=== PATIENT | female | born 1995 | race Caucasian/White ===

== ENCOUNTER 2022-07-25 09:58 | Emergency (ER) | payer OTHER ==
[~2022-07-25] VITALS: Ht 177.8 cm; Wt 146.1 kg
[2022-07-25 10:02] VITALS: BP 142/102
--- NOTE | 2022-07-25 11:47 | NUR ---
26 y/o female bib self from home, c/o chest congestion, runny nose, chest feels "heavy" with sob for 2 days. pt denies anyone else sick at home at this time. denies nausea, vomiting, diarrhea. skin is pink/warm/dry. a&o x4 with even and steady gait. lungs clear bl, heart rate even and regular. pt states pain is 7/10 at this time. vss. ermd made aware of pt. pmh: denies nka med: denies
[2022-07-25 12:51] VITALS: BP 136/72
--- NOTE | 2022-07-25 12:51 | NUR ---
Patient discharged with v/s stable. Written and verbal after care instructions ABOUT UPPER RESPIRATORY INFECTION given and explained. Patient verbalized understanding. Ambulatory with steady gait. All questions addressed prior to discharge. Advised to follow up with PMD.
== END 2022-07-25 12:51 | disposition home or self-care (01) ==
LOC: MED 09:58
DX: J06.9 Acute upper respiratory infection, unspecified (principal)
CPT/HCPCS: 71045; 93005; 99283

== ENCOUNTER 2023-07-20 16:07 | Emergency (ER) | payer MEDICAID, OTHER ==
[~2023-07-20] VITALS: Ht 175.3 cm; Wt 142.9 kg
[2023-07-20 16:31] VITALS: BP 152/84; PULSE 60; RESP 18; TEMP 98.2; O2SAT 98
[2023-07-20 17:16] LABS: BASOPHILS % (AUTO) 0.7 % (0.0-2.0); EOSINOPHILS # (AUTO) 0.1 K/uL (0-0.4); EOSINOPHILS % (AUTO) 1.9 % (0.0-4.0); HEMATOCRIT 35.3 % (36-48); HEMOGLOBIN 11.3 g/dL (12.0-16.0); LYMPHOCYTES # (AUTO) 2.1 K/uL (2.5-16.5); MEAN CORPUSCULAR HEMOGLOBIN 27 pg (27-31); MEAN CORPUSCULAR HGB CONC 32 g/dL (33-37); MEAN CORPUSCULAR VOLUME 83.5 fL (80-94); MONOCYTES # (AUTO) 0.3 K/uL (0.8-1.0); MONOCYTES % (AUTO) 4.9 % (1.7-9.3); NEUTROPHILS # (AUTO) 4.1 K/uL (1.8-7.7); NEUTROPHILS % (AUTO) 61.5 % (42.2-75.2); PLATELET COUNT (AUTO) 266 K/uL (140-450); RED BLOOD CELL COUNT(AUTO) 4.23 MIL/uL (4.20-5.40); RED CELL DISTRIBUTION WIDTH 13.4 % (11.6-13.7); WHITE BLOOD COUNT (AUTO) 6.6 K/uL (4.8-10.8)
[2023-07-20 17:33] LABS: ALBUMIN 3.4 g/dL (3.4-5.0); ANION GAP 13.4 (8-16); CALCIUM 8.3 mg/dL (8.5-10.1); CARBON DIOXIDE 26.4 mmol/L (21-32); CREATININE 0.7 mg/dL (0.6-1.3); POTASSIUM 3.8 mmol/L (3.5-5.1); TOTAL BILIRUBIN 3.2 mg/dL (0.0-1.0); TOTAL PROTEIN, SERUM 7.5 g/dL (6.4-8.2)
[2023-07-20] MEDS ORDERED: KETOROLAC 30 MG/ML VIAL IM ONE (17:40)
[2023-07-20] MEDS ORDERED: DICYCLOMINE HCL LIQUID 10 MG/5 ML UDC PO ONE (17:40)
[2023-07-20] MEDS ORDERED: ALUMINUM HYD/MAG/SIMETHICONE 30 ML UDC PO ONE (17:40)
[2023-07-20] MEDS ORDERED: FAMOTIDINE 20 MG TAB PO ONE (17:40)
[2023-07-20 17:52] LABS: APPEARANCE,URINE CLEAR (CLEAR); BILIRUBIN,URINE 3+ (NEGATIVE); BLOOD, URINE NEGATIVE (NEGATIVE); COLOR,URINE ORANGE (YELLOW); LEUKOCYTE ESTERASE ,URINE 1+ (NEGATIVE); NITRITE, URINE NEGATIVE (NEGATIVE); PROTEIN,URINE NEGATIVE (NEGATIVE); UGLUCOSE TRACE (NEGATIVE); UROBILINOGEN,URINE 0.2 EU/dL (0.2 - 1)
[2023-07-20 17:59] LABS: ICTOTEST POSITIVE (NEGATIVE)
[2023-07-20 18:01] LABS: BACTERIA,URINE 10-30 (MOD) /HPF (None Seen); MUCUS,URINE 1+ /LPF (None Seen); RBC,URINE 0-5 /HPF (0-5); SQUAMOUS EPITHELIAL CELL,UR 4-10 (MOD) /LPF (0-3 (FEW))
[2023-07-20 18:16] VITALS: O2SAT 98
[2023-07-20] MEDS ORDERED: ACET-10509 PO ×2 (19:13→19:41)
[2023-07-20] MEDS ORDERED: FAMO-90 PO ×2 (19:13→19:41)
[2023-07-20] MEDS ORDERED: ALUM355S5 PO ×2 (19:13→19:41)
[2023-07-20] MEDS ORDERED: SUCR1TAB35 PO ×2 (19:13→19:41)
== END 2023-07-20 19:23 | disposition home or self-care (01) ==
LOC: MED 16:07
DX: K29.70 Gastritis, unspecified, without bleeding (principal); K80.80 Other cholelithiasis without obstruction; I10 Essential (primary) hypertension; Z79.899 Other long term (current) drug therapy
CPT/HCPCS: 36415; 76705; 80053; 81001; 81025; 83690; 85025; 87086; 96372; 99284; J1885; Q0092